=== PATIENT | female | born 1980 | race Two or more races ===

== ENCOUNTER 2017-02-23 20:44 | Emergency (ER) | payer OTHER ==
[2017-02-23 21:04] VITALS: BP 119/74; PULSE 74; TEMP 98.5; BMI 48.4
--- NOTE | 2017-02-23 21:46 | PDOC ---
History of Present Illness - General History Source: Patient Exam Limitations: No Limitations - History of Present Illness Initial Comments: 02/23/17 22:13 The patient is a 13 weeks , 37 year old female, with a significant past medical history of endocarditis, who presents to the ED with palpitations. Patient states she has been having dizziness and fatigue with exertion for two days. She states she was on the bus when she felt like she going to pass out. She went home and had 1x vomiting with intermittent chills. Patient denies SOB, fever, diarrhea, constipation, dysuria, frequency. Patient denies vaginal bleeding, discharge. Significant Family hx: diabetes, HTN. Surgical hx:Aortic valve replacement [employer] O[employer]ATOR: [facility] <Julio Gonzalez - Last Filed: 02/24/17 02:28> <Jacqueline Sims - Last Filed: 02/24/17 04:54> - General Chief Complaint: Lightheaded Stated Complaint: CHEST PAIN Time Seen by Provider: 02/23/17 21:10 Past History <Julio Gonzalez - Last Filed: 02/24/17 02:28> - Surgical History Cardiac Surgery: Yes (heart valve replacement) - Suicide/Smoking/Psychosocial Hx Smoking History: Never smoked Have you smoked in the past 12 months: No Information on smoking cessation initiated: No Hx Alcohol Use: No Drug/Substance Use Hx: No Substance Use Type: None <Jacqueline Sims - Last Filed: 02/24/17 04:54> - Past Medical History Allergies/Adverse Reactions: Allergies Allergy/AdvReac Type Severity Reaction Status Date / Time No Known Allergies Allergy Verified 02/23/17 22:01 Review of Systems - Review of Systems Able to Perform ROS?: Yes Comments:: 02/23/17 22:14 GENERAL/CONSTITUTIONAL: No fever or chills. No weakness. HEAD, EYES, EARS, NOSE AND THROAT: No change in vision. No ear pain or discharge. No sore throat. CARDIOVASCULAR: + chest pain + palpitations. No shortness of breath. RESPIRATORY: No cough, wheezing, or hemoptysis. GASTROINTESTINAL: No nausea, vomiting, diarrhea or constipation. GENITOURINARY: No dysuria, frequency, or change in urination. MUSCULOSKELETAL: No joint or muscle swelling or pain. No neck or back pain. SKIN: No rash NEUROLOGIC: No headache, vertigo, loss of consciousness, or change in strength/ sensation. ENDOCRINE: No increased thirst. No abnormal weight change. HEMATOLOGIC/LYMPHATIC: No anemia, easy bleeding, or history of blood clots. ALLERGIC/IMMUNOLOGIC: No hives or skin allergy. <Julio Gonzalez - Last Filed: 02/24/17 02:28> *Physical Exam - Vital Signs Last Vital Signs Temp Pulse Resp BP Pulse Ox 98.5 F 74 18 119/74 100 02/23/17 21:01 02/23/17 21:01 02/23/17 21:01 02/23/17 21:01 02/23/17 21:01 - Physical Exam Comments: 02/23/17 22:14 GENERAL: Awake, alert, and fully oriented, in no acute distress. HEAD: No signs of trauma EYES: PERRLA, EOMI, sclera anicteric, conjunctiva clear ENT: Auricles normal inspection, hearing grossly normal, nares patent, oropharynx clear without exudates. Moist mucosa NECK: Normal ROM, supple, no lymphadenopathy, JVD, or masses LUNGS: Breath sounds equal, clear to auscultation bilaterally. No wheezes, and no crackles HEART: Systolic murmur/split S1 secondary to valve replacement. no rubs or gallops ABDOMEN: Soft, nontender, normoactive bowel sounds. No guarding, no rebound. No masses EXTREMITIES: Normal range of motion, no edema. No clubbing or cyanosis. No cords, erythema, or tenderness. No pitting edema. NEUROLOGICAL: Cranial nerves II through XII grossly intact. Normal speech, normal gait SKIN: Warm, Dry, normal turgor, no rashes or lesions noted. <Julio Gonzalez - Last Filed: 02/24/17 02:28> - Vital Signs Last Vital Signs Temp Pulse Resp BP Pulse Ox 98.5 F 74 18 119/74 100 02/23/17 21:01 02/23/17 21:01 02/23/17 21:01 02/23/17 21:01 02/23/17 21:01 <Jacqueline Sims - Last Filed: 02/24/17 04:54> ED Treatment Course - LABORATORY CBC & Chemistry Diagram: 02/23/17 22:08 02/23/17 22:08 <Julio Gonzalez - Last Filed: 02/24/17 02:28> - LABORATORY CBC & Chemistry Diagram: 02/23/17 22:08 02/23/17 22:08 <Jacqueline Sims - Last Filed: 02/24/17 04:54> Medical Decision Making - Medical Decision Making 02/24/17 04:53 Pt has hyperemesis and she felt palpitations today. Pt hydrated; labs normal; only small ketones in the urine and she was hydrated for it. Feeling better. SHe has more nausea than vomiting. States that she is not eating much. Pt will be referred back to her PMD <Jacqueline Sims - Last Filed: 02/24/17 04:54> *DC/Admit/Observation/Transfer - Attestations Scribe Attestion: 02/23/17 22:15 Documentation prepared by Julio Gonzalez, acting as medical instrument technician for Jacqueline Sims MD. <Julio Gonzalez - Last Filed: 02/24/17 02:28> - Discharge Dispostion Admit: No <Jacqueline Sims - Last Filed: 02/24/17 04:54> Diagnosis at time of Disposition: Hyperemesis gravidarum, Heart palpitations - Discharge Dispostion Disposition: HOME Condition at time of disposition: Stable - Patient Instructions Printed Discharge Instructions: DI for Hyperemesis Gravidarum, DI for Palpitations
[2017-02-23] MEDS ORDERED: SODIUM CHLORIDE 0.9% 500 ML INFUS.BAG IV ONE (22:13)
[2017-02-23 22:37] LABS: BASOPHIL 0.4 % (0-2.0); EOSINOPHIL 1.8 % (0-4.5); MCH 27.1 pg (25.7-33.7); MCHC 33.8 g/dl (32.0-36.0); MEAN CELL VOLUME 80.2 fl (80-96); MEAN PLT VOLUME 7.4 fl (7.5-11.1); NEUTROPHILS 69.1 % (42.8-82.8); PLATELET COUNT 271 K/MM3 (134-434); RDW 13.7 % (11.6-15.6); WHITE BLOOD COUNT 8.2 K/mm3 (4.0-10.0)
[2017-02-23 22:58] LABS: ALBUMIN 3.2 g/dl (3.4-5.0); ANION GAP 8 (8-16); BILIRUBIN,TOTAL 0.2 mg/dL (0.2-1.0); CALCIUM 8.4 mg/dL (8.5-10.1); CO2 23 mmol/L (21-32); CREATININE 0.4 mg/dL (0.55-1.02); GLUCOSE,RANDOM 81 mg/dL (74-106); SGPT/ALT 16 U/L (12-78); TOT PROT 6.4 g/dl (6.4-8.2)
[2017-02-23 22:59] LABS: INR 1.03 (0.82-1.09); PROTHROMBIN TIME (PATIENT) 11.6 SEC (9.98-11.88)
[2017-02-23 23:00] LABS: ALK PHOS 28 U/L (45-117); CPK 49 IU/L (26-192); TROPONIN I < 0.02 ng/ml (0.00-0.05)
[2017-02-23 23:02] LABS: ACTIVATED PTT 24.2 SECONDS (26.9-34.4)
[2017-02-23 23:03] LABS: SGOT/AST 4 U/L (15-37)
[2017-02-24 01:09] LABS: URINE APPEARANCE CLEAR; URINE BILIRUBIN NEGATIVE (NEGATIVE); URINE BLOOD NEGATIVE (NEGATIVE); URINE COLOR COLORLESS; URINE GLUCOSE (UA) NEGATIVE (NEGATIVE); URINE KETONE 1+ (NEGATIVE); URINE NITRITE NEGATIVE (NEGATIVE); URINE PROTEIN NEGATIVE (NEGATIVE); URINE UROBILINOGEN NEGATIVE mg/dL (0.2-1.0)
[2017-02-24 09:30] LABS: URINE LEUK ESTERASE Negative (NEGATIVE)
--- NOTE | 2017-02-24 09:59 | EKG ---
Test Reason : Blood Pressure : / mmHG Vent. Rate : 076 BPM Atrial Rate : 076 BPM P-R Int : 128 ms QRS Dur : 082 ms QT Int : 356 ms P-R-T Axes : 072 062 045 degrees QTc Int : 400 ms NORMAL SINUS RHYTHM NORMAL ECG WHEN COMPARED WITH ECG OF 23-FEB-2017 20:55, NO SIGNIFICANT CHANGE WAS FOUND Confirmed by TEQUILA DE LA CRUZ MD ([id number]) on 02/24/2017 9:59:18 AM Referred By: Confirmed By:TEQUILA DE LA CRUZ MD
--- NOTE | 2017-02-24 10:07 | EKG ---
Test Reason : Blood Pressure : / mmHG Vent. Rate : 073 BPM Atrial Rate : 073 BPM P-R Int : 114 ms QRS Dur : 084 ms QT Int : 364 ms P-R-T Axes : 061 066 046 degrees QTc Int : 401 ms NORMAL SINUS RHYTHM WITH SINUS ARRHYTHMIA NORMAL ECG NO PREVIOUS ECGS AVAILABLE Confirmed by TEQUILA DE LA CRUZ MD ([id number]) on 02/24/2017 10:07:03 AM Referred By: Confirmed By:TEQUILA DE LA CRUZ MD
== END 2017-02-24 02:51 | disposition home or self-care (01) ==
LOC: JER 20:44
DX: R00.2 Palpitations (principal); R11.10 Vomiting, unspecified
CPT/HCPCS: 36415; 80053; 81003; 82550; 84484; 85025; 85610; 85730; 93005; 93010; 99282-25